=== PATIENT | male | born 1960 | race Native Hawaiian/Other Pacific Islander ===

== ENCOUNTER 2020-04-09 05:46 | Emergency (ER) | payer BC ==
[~2020-04-09] VITALS: Ht 185.4 cm; Wt 81.6 kg
[~2020-04-09 05:46] MED LIST: ASPI-93 PO; CETI10TA PO; CLOP75TA2 PO; DEXL60CA4 PO; FISH OIL1200 M1 PO; METO50TA27 PO; SIMV40TA57 PO
[2020-04-09 05:48] VITALS: TEMP 99.1
[2020-04-09] MEDS ORDERED: ADULT ASPIRIN R81 MG PO (06:12)
[2020-04-09 06:34] LABS: PLATELET COUNT 341 K/uL (142-355)
[2020-04-09 06:43] LABS: POTASSIUM 4.1 mmol/L (3.6-5.2); SODIUM 140 mmol/L (136-145)
[2020-04-09 08:07] VITALS: BP 112/77
== END 2020-04-09 08:07 | disposition home or self-care (01) ==
LOC: ED 05:46
PROVIDERS: Family Medicine
DX: I20.8 Other forms of angina pectoris (principal); R53.83 Other fatigue
CPT/HCPCS: 36415; 80053; 82550; 84484; 85027; 93005; 99283

== ENCOUNTER 2022-01-16 12:36 | Emergency (ER) | payer BC ==
[~2022-01-16 12:36] MED LIST changes: +ADULT ASPIRIN R81 MG PO
[2022-01-16 13:39] LABS: PLATELET COUNT 274 K/uL (142-355)
[2022-01-16 13:40] LABS: POTASSIUM 3.6 mmol/L (3.6-5.2)
== END 2022-01-16 13:22 | disposition home or self-care (01) ==
LOC: ED 12:36
PROVIDERS: Emergency Medicine
DX: K21.9 Gastro-esophageal reflux disease without esophagitis (principal); R06.6 Hiccough
CPT/HCPCS: 80048; 83880; 84484; 85007; 85027; 85379; 93005; 99284

== ENCOUNTER 2022-07-02 08:24 | Outpatient (CLI) | payer BC | END 2022-07-02 19:31 | disposition home or self-care (01) | LOC: US 08:24 | PROVIDERS: ATTEND Nurse Practitioner Family | DX: E80.6 Other disorders of bilirubin metabolism (principal) ==